=== PATIENT | female | born 1985 | race Caucasian/White ===

== ENCOUNTER 2017-11-02 20:32 | Emergency (ER) | payer OTHER ==
[~2017-11-02] VITALS: Ht 154.9 cm; Wt 68.0 kg
[~2017-11-02 20:32] MED LIST: ZITHROMAX Z PA250 MG PO; ZYRTEC-D 12HR 51 TER PO
[2017-11-02] MEDS ORDERED: IBUPROFEN600 MG PO (22:42)
== END 2017-11-02 22:53 | disposition home or self-care (01) ==
LOC: ED 20:32
DX: S30.0XXA Contusion of lower back and pelvis, initial encounter (principal); S20.211A Contusion of right front wall of thorax, initial encounter; Z88.1 Allergy status to other antibiotic agents; V69.9XXA Occupant (driver) (passenger) of heavy transport vehicle injured in unspecified traffic accident, initial encounter; Y93.89 Activity, other specified; Y92.413 State road as the place of occurrence of the external cause; Y99.9 Unspecified external cause status

== ENCOUNTER → 2020-01-29 | Outpatient (CLI) | payer OTHER ==
[~2020-01-29] MED LIST changes: +IBUPROFEN600 MG PO
== END | disposition home or self-care (01) ==
LOC: COVID19 00:21
DX: Z20.828 Contact with and (suspected) exposure to other viral communicable diseases (principal)